=== PATIENT | male | born 1960 | race Native Hawaiian/Other Pacific Islander ===

== ENCOUNTER 2016-12-28 09:14 | Emergency (ER) | payer MEDICAID ==
[~2016-12-28] VITALS: Ht 177.8 cm; Wt 59.0 kg
[2016-12-28] MEDS ORDERED: METOPROLOL (09:28)
[2016-12-28] MEDS ORDERED: LAMOTRIGINE (09:28)
[2016-12-28] MEDS ORDERED: CLOP75TA15 PO (09:28)
[2016-12-28] MEDS ORDERED: AMIODARONE (09:28)
[2016-12-28] MEDS ORDERED: RESPERIDAL (09:28)
[2016-12-28] MEDS ORDERED: WELLBUTRIN (09:28)
[2016-12-28] MEDS ORDERED: ACETAMINOPHEN ES 500 MG TABLET PO ONE (10:00)
--- NOTE | 2016-12-28 10:00 | NUR ---
Patient discharged to home in stable conditon. Written and verbal after care instructions given. Patient verbalizes understanding of instructions.
[2016-12-28] MEDS ORDERED: ACETAMINOPHEN ES 500 MG TABLET ONE (10:09)
== END 2016-12-28 10:01 | disposition home or self-care (01) ==
LOC: ER 09:14
DX: S92.401A Displaced unspecified fracture of right great toe, initial encounter for closed fracture (principal); S90.111A Contusion of right great toe without damage to nail, initial encounter; I48.91 Unspecified atrial fibrillation; I25.10 Atherosclerotic heart disease of native coronary artery without angina pectoris; I10 Essential (primary) hypertension; F32.9 Major depressive disorder, single episode, unspecified; X58.XXXA Exposure to other specified factors, initial encounter; Y93.89 Activity, other specified; Y92.89 Other specified places as the place of occurrence of the external cause; Y99.8 Other external cause status
CPT/HCPCS: 73660; A4663

== ENCOUNTER 2018-05-05 17:42 | Emergency (ER) | payer MEDICAID ==
[~2018-05-05] VITALS: Ht 172.7 cm; Wt 65.8 kg
[~2018-05-05 17:42] MED LIST: AMIODARONE; CLOP75TA15 PO; LAMOTRIGINE; METOPROLOL; RESPERIDAL; WELLBUTRIN
[2018-05-05] MEDS ORDERED: ACETAMINOPHEN ES 500 MG TABLET ONE (18:00)
[2018-05-05] MEDS ORDERED: ACETAMINOPHEN ES 500 MG TABLET PO ONE (18:00)
== END 2018-05-05 18:03 | disposition home or self-care (01) ==
LOC: ER 17:44
DX: M79.631 Pain in right forearm (principal); I48.91 Unspecified atrial fibrillation; I25.10 Atherosclerotic heart disease of native coronary artery without angina pectoris; I10 Essential (primary) hypertension
CPT/HCPCS: A4663; A9150